=== PATIENT | male | born 1995 | race Caucasian/White ===

== ENCOUNTER 2020-11-09 07:50 | Emergency (ER) | payer SELFPAY ==
[~2020-11-09] VITALS: Ht 172 cm; Wt 68.0 kg
--- NOTE | 2020-11-09 08:05 | ED Neurological Problem ---
General Stated Complaint: OD,ELEVATED B.S. Source: patient Exam Limitations: no limitations History of Present Illness Date Seen by Provider: Nov 09, 2020 Time Seen by Provider: 07:44 Initial Comments Patient presents to the ER by EMS from a hotel with chief complaint of overdose of fentanyl tablet that he crushed and snorted last night. His roommate noticed that he was breathing funny and had some saliva at the corner of his mouth and was lying face down at 7:00 in the morning when they woke up. He had a 4 mg Narcan nasal delivery device and gave him the drug. Shortly after that the patient started arousing by the time EMS arrived but was still obtunded. He had good vital signs and oxygen saturation in the high 90s on room air. He denies being sick lately. He says he is not suicidal and took the fentanyl merely to get high. He denies taking anything else. He denies using stimulants. He denies any pain and only has mild nausea but does not think he is going to vomit and does not want anything for it. He has had surgery related to cleft palate but no other known medical history. He does not follow with a primary care doctor. He is originally from [place], [place]. EMS remarks that he is cold when they arrived because his roommate had put him in a cold shower. EMS remarks his blood sugar was greater than 300. He denies being diabetic. He denies a history of seizures. Allergies and Home Medications Allergies Coded Allergies: No Known Drug Allergies (Unverified , 11/09/20) Patient Home Medication List Home Medication List Reviewed: Yes Review of Systems Review of Systems Constitutional: No chills, No diaphoresis, No fever, No malaise Eyes: Denies Blindness, Denies Blurred Vision Ears, Nose, Mouth, Throat: denies ear pain, denies ear discharge Respiratory: No cough, No short of breath Cardiovascular: No edema, No palpitations Gastrointestinal: No abdominal pain; nausea; No vomiting Genitourinary: No discharge, No dysuria Musculoskeletal: No back pain, No joint pain Skin: No pruritus, No rash All Other Systems Reviewed Negative Unless Noted: Yes Past Byoasos-[id number]-Ogvfmf Hx Patient Social History Alcohol Use: Occasionally Uses Alcohol Beverage of Choice: Beer Recreational Drug Use: Yes Drug of Choice: Opiates Smoking Status: Current Everyday Smoker Type Used: Cigarettes (1 ppd) Physical Exam Vital Signs Vital Signs - First Documented 11/09/20 07:50 Temp 34.6 Pulse 107 Resp 20 B/P (MAP) 127/83 (98) Pulse Ox 99 Capillary Refill : Height, Weight, BMI Height: '" Weight: lbs. oz. 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, no motor/sensory deficits, alert, normal mood/affect, oriented x 3 Crainal Nerves: normal hearing, normal speech Skin: normal color, warm/dry Progress/Results/Core Measures Results/Orders Lab Results Laboratory Tests Test 11/09/20 07:55 11/09/20 08:18 Range/Units White Blood Count 14.5 H 4.3-11.0 10^3/uL Red Blood Count 4.74 4.30-5.52 10^6/uL Hemoglobin 15.5 13.3-17.7 g/dL Hematocrit 45 40-54 % Mean Corpuscular Volume 95 80-99 fL Mean Corpuscular Hemoglobin 33 25-34 pg Mean Corpuscular Hemoglobin Concent 34 32-36 g/dL Red Cell Distribution Width 11.3 10.0-14.5 % Platelet Count 239 130-400 10^3/uL Mean Platelet Volume 10.0 9.0-12.2 fL Immature Granulocyte % (Auto) 0 % Neutrophils (%) (Auto) 89 H 42-75 % Lymphocytes (%) (Auto) 5 L 12-44 % Monocytes (%) (Auto) 5 0-12 % Eosinophils (%) (Auto) 0 0-10 % Basophils (%) (Auto) 0 0-10 % Neutrophils # (Auto) 12.9 H 1.8-7.8 10^3/uL Lymphocytes # (Auto) 0.7 L 1.0-4.0 10^3/uL Monocytes # (Auto) 0.7 0.0-1.0 10^3/uL Eosinophils # (Auto) 0.0 0.0-0.3 10^3/uL Basophils # (Auto) 0.0 0.0-0.1 10^3/uL Immature Granulocyte # (Auto) 0.1 0.0-0.1 10^3/uL Neutrophils % (Manual) 68 % Lymphocytes % (Manual) 8 % Monocytes % (Manual) 11 % Eosinophils % (Manual) 1 % Band Neutrophils 12 % Blood Morphology Comment NORMAL Sodium Level 137 135-145 MMOL/L Potassium Level 4.0 3.6-5.0 MMOL/L Chloride Level 97 L 98-107 MMOL/L Carbon Dioxide Level 23 21-32 MMOL/L Anion Gap 17 H 5-14 MMOL/L Blood Urea Nitrogen 14 7-18 MG/DL Creatinine 1.23 0.60-1.30 MG/DL Estimat Glomerular Filtration Rate > 60 BUN/Creatinine Ratio 11 Glucose Level 284 H 70-105 MG/DL Calcium Level 8.5 8.5-10.1 MG/DL Corrected Calcium 8.3 L 8.5-10.1 MG/DL Total Bilirubin 0.9 0.1-1.0 MG/DL Aspartate Amino Transf (AST/SGOT) 39 H 5-34 U/L Alanine Aminotransferase (ALT/SGPT) 26 0-55 U/L Alkaline Phosphatase 76 40-136 U/L Total Creatine Kinase 408 H 30-200 U/L Total Protein 6.4 6.4-8.2 GM/DL Albumin 4.2 3.2-4.5 GM/DL Salicylates Level < 5.0 L 5.0-20.0 MG/DL Acetaminophen Level < 10 L 10-30 UG/ML Serum Alcohol < 10 <10 MG/DL Glucometer 173 H 70-110 MG/DL My Orders Orders - BONNY OLIVRAES Continuous Ekg Monitoring (11/09/20 08:01) Ekg Tracing (11/09/20 08:) Ua Culture If Indicated (11/09/20 08:) Cbc With Automated Diff (11/09/20 08:) Comprehensive Metabolic Panel (11/09/20 08:01) Drug Screen Stat (Urine) (11/09/20 08:01) Alcohol (11/09/20 08:) Creatine Kinase (11/09/20 08:) Acetaminophen (11/09/20 08:01) Salicylate (11/09/20 08:01) Ed Iv/Invasive Line Start (11/09/20 08:03) Ns Iv 1000 Ml (Sodium Chloride 0.9%) (11/09/20 08:15) Accucheck Stat ONCE (11/09/20 08:05) Manual Differential (11/09/20 07:55) Vital Signs/I&O 11/09/20 07:50 Temp 34.6 Pulse 107 Resp 20 B/P (MAP) 127/83 (98) Pulse Ox 99 Progress Progress Note #1: Time: 08:17 Progress Note The patient is hypothermic probably due to the shower. He is alert and oriented now. We will continue to monitor. Fentanyl is a fairly short acting drug and probably will not require further Narcan or intubation. We have put warm blankets on him and given him some warmed fluids. Plan to get urine and blood. Repeat Accu-Chek 173. Progress Note #2: Time: 12:02 Progress Note After a nap the patient has produced a urine sample. He has been completely cooperative. He does not have any concerns or complaints. Is having no pain or nausea. He is alert and oriented x4. He is ready to go home. We have encouraged him to return if symptoms worsen or otherwise go to work. We have also recommended local outpatient practice for help as well as Narcotics Anonymous. The patient still declines any suicidal ideation. Initial ECG Impression Date: Nov 09, 2020 Initial ECG Impression Time: 08:07 Initial ECG Rate: 92 Initial ECG Rhythm: Normal Sinus Initial ECG Intervals: QT (489) Initial ECG Impression: Normal, Nonspecific Changes Initial ECG Comparisson: No Previous ECG Available Comment Normal sinus rhythm without clinically relevant ST changes. Minimally prolonged QT interval. Departure Impression Primary Impression: Drug overdose Qualified Codes: T50.901A - Poisoning by unspecified drugs, medicaments and biological substances, accidental (unintentional), initial encounter Disposition: 01 HOME, SELF-CARE Condition: Stable Departure-Patient Inst. Decision time for Depature: 12:00 Referrals: [facility],LOCAL PHYSICIAN (PCP) Primary Care Physician Patient Instructions: Opioid Overdose, Opioid Use Disorder, How to Give Naloxone, Accidental Overdose (DC) Add. Discharge Instructions: If you need some help with drug abuse/addiction I would suggest Narcotics Anonymous. Locally at the [facility] there are several doctors who are specially trained to help people with their addiction/dependence if you want to seek out their help. 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 Drink plenty of fluids. You should be okay to return to work tomorrow. Scripts Naloxone HCl (Naloxone HCl) 0.4 Mg/1 Ml Syringe 0.4 MG IJ Q15M PRN for overdose, #2 SYRINGE 2 Refills Prov: BONNY OLIVARES 11/09/20 Work/School Note: Work Release Form Date Seen in the Emergency Department: Nov 09, 2020 Return to Work: Nov 09, 2020 Restrictions: No Restrictions Other Restrictions Listed Below: Patient is good to return to work today or tomorrow. BONNY OLIVARES Nov 09, 2020 08:05
[2020-11-09] MEDS ORDERED: NS IV 1000 ML 1,000 ML IV SCH (08:15)
[2020-11-09 08:20] LABS: ALBUMIN 4.2 GM/DL (3.2-4.5); BASOPHILS % (AUTO) 0 % (0-10); CHLORIDE 97 MMOL/L (98-107); EOSINOPHILS % (AUTO) 0 % (0-10); HEMATOCRIT 45 % (40-54); HEMOGLOBIN 15.5 g/dL (13.3-17.7); LYMPHOCYTES # (AUTO) 0.7 10^3/uL (1.0-4.0); LYMPHOCYTES % (AUTO) 5 % (12-44); MEAN CORPUSCULAR HEMOGLOBIN 33 pg (25-34); MEAN CORPUSCULAR HGB CONC 34 g/dL (32-36); MEAN CORPUSCULAR VOLUME 95 fL (80-99); MONOCYTES # (AUTO) 0.7 10^3/uL (0.0-1.0); MONOCYTES % (AUTO) 5 % (0-12); NEUTROPHILS # (AUTO) 12.9 10^3/uL (1.8-7.8); NEUTROPHILS % (AUTO) 89 % (42-75); PLATELET COUNT 239 10^3/uL (130-400); SODIUM 137 MMOL/L (135-145); WHITE BLOOD COUNT 14.5 10^3/uL (4.3-11.0)
[2020-11-09 08:22] LABS: CALCIUM 8.5 MG/DL (8.5-10.1)
[2020-11-09 08:23] LABS: GLUCOSE 284 MG/DL (70-105); TOTAL PROTEIN 6.4 GM/DL (6.4-8.2)
[2020-11-09 08:24] LABS: CARBON DIOXIDE 23 MMOL/L (21-32)
[2020-11-09 08:25] LABS: BILIRUBIN,TOTAL 0.9 MG/DL (0.1-1.0)
[2020-11-09 08:27] LABS: ALKALINE PHOSPHATASE 76 U/L (40-136); CREATININE SERUM 1.23 MG/DL (0.60-1.30); GFR ESTIMATED > 60
[2020-11-09 08:28] LABS: ACETAMINOPHEN < 10 UG/ML (10-30); BUN/CREATININE RATIO 11
[2020-11-09 08:30] LABS: ALANINE AMINOTRANSFERASE 26 U/L (0-55); CREATINE KINASE 408 U/L (30-200); SALICYLATE < 5.0 MG/DL (5.0-20.0)
[2020-11-09 08:59] LABS: BAND NEUTROPHILS 12 %; EOSINOPHILS % (MANUAL) 1 %; LYMPHOCYTES % (MANUAL) 8 %; MONOCYTES % (MANUAL) 11 %; NEUTROPHILS % (MANUAL) 68 %; RBC MORPH NORMAL
--- NOTE | 2020-11-09 09:00 | NUR ---
PT STATES IS UNABLE TO VOID AT THIS X. NO REQUEST. DENIES NAUSEA. PT ANSWERING QUESTIONS APPROPRIATELY
[2020-11-09] MEDS ORDERED: NALO0.4D3 IJ (12:06)
[2020-11-09 12:09] LABS: BILIRUBIN,URINE NEGATIVE (NEGATIVE); CLARITY,URINE CLEAR; COLOR,URINE YELLOW; GLUCOSE, URINE (UA) 2+ (NEGATIVE); KETONES,URINE 1+ (NEGATIVE); LEUKOCYTE ESTERASE ,URINE NEGATIVE (NEGATIVE); NITRITE,URINE NEGATIVE (NEGATIVE); PH,URINE 6.5 (5-9); PROTEIN,URINE NEGATIVE (NEGATIVE)
[2020-11-09 12:25] VITALS: BP 129/75
[2020-11-09 12:26] LABS: BENZODIAZEPINES SCREEN URINE NEGATIVE (NEGATIVE); COCAINE SCREEN URINE NEGATIVE (NEGATIVE)
[2020-11-09 12:27] LABS: AMPHETAMINE SCREEN, URINE POSITIVE (NEGATIVE); BARBITURATE SCREEN URINE NEGATIVE (NEGATIVE); CANNABINOID SCREEN, URINE POSITIVE (NEGATIVE); METHADONE STAT NEGATIVE (NEGATIVE); METHAMPHETAMINE SCREEN URINE S NEGATIVE (NEGATIVE); OPIATE SCREEN URINE NEGATIVE (NEGATIVE); OXYCODONE STAT NEGATIVE (NEGATIVE); PROPOXYPHENE STAT NEGATIVE (NEGATIVE); TRICYCLIC ANTIDEPRESSANTS SCRE NEGATIVE (NEGATIVE)
[2020-11-09 12:31] LABS: BACTERIA,URINE TRACE /HPF; TYROSINE CRYSTAL,URINE 0 /LPF
== END 2020-11-09 12:25 | disposition home or self-care (01) ==
LOC: ER 07:55
DX: T40.411A Poisoning by fentanyl or fentanyl analogs, accidental (unintentional), initial encounter (principal); F17.210 Nicotine dependence, cigarettes, uncomplicated
CPT/HCPCS: 80053; 80306; 81000; 82550; 82962; 85007; 85027; 93005; 99284; G0480 ×3; 36415; 80320; 80329